=== PATIENT | female | born 1955 | race Caucasian/White ===

== ENCOUNTER → 2019-03-26 | Outpatient (CLI) | payer MEDICAID ==
[2019-03-27 10:09] LABS: ABSOLUTE BASOPHILS # (AUTO) 0.1 10^3/uL (0.0-0.2); ABSOLUTE EOSINOPHILS # (AUTO) 0.3 10^3/uL (0.0-0.6); ABSOLUTE LYMPHOCYTES (AUTO) 2.2 10^3/uL (0.5-4.7); ABSOLUTE MONOCYTES (AUTO) 0.7 10^3/uL (0.1-1.4); ABSOLUTE NEUT (AUTO) 4.9 10^3/uL (1.7-8.2); BASOPHILS % (AUTO) 0.7 % (0-2); EOSINOPHILS % (AUTO) 3.7 % (0-6); HEMATOCRIT 43.5 % (36.0-47.0); HEMOGLOBIN 14.8 g/dL (12.0-15.5); LYMPHOCYTES % (AUTO) 27.3 % (13-45); MEAN CORPUSCULAR HEMOGLOBIN 32.3 pg (27.0-33.4); MEAN CORPUSCULAR VOLUME 95 fl (80-97); MONOCYTES % (AUTO) 8.3 % (3-13); PLATELET COUNT 242 10^3/uL (150-450); RED BLOOD COUNT 4.59 10^6/uL (3.72-5.28); RED CELL DISTRIBUTION WIDTH 14.3 % (11.5-14.0); TOTAL CELLS COUNTED % (AUTO) 100 %; WHITE BLOOD COUNT 8.2 10^3/uL (4.0-10.5)
[2019-03-27 10:25] LABS: ALBUMIN 4.2 g/dL (3.5-5.0); ALKALINE PHOSPHATASE 50 U/L (38-126); ASPARTATE AMINO TRANSFERASE 16 U/L (14-36); BILIRUBIN,DIRECT 0.2 mg/dL (0.0-0.4); BILIRUBIN,TOTAL 0.3 mg/dL (0.2-1.3); CHOLESTEROL 147.32 mg/dL (0-200); TOTAL PROTEIN 7.1 g/dL (6.3-8.2); TRIGLYCERIDES 97 mg/dL (<150)
[2019-03-27 10:31] LABS: ALBUMIN 4.2 g/dL (3.5-5.0); ALKALINE PHOSPHATASE 50 U/L (38-126); ANION GAP 7 (5-19); ASPARTATE AMINO TRANSFERASE 16 U/L (14-36); BILIRUBIN,DIRECT 0.2 mg/dL (0.0-0.4); BILIRUBIN,TOTAL 0.3 mg/dL (0.2-1.3); BLOOD UREA NITROGEN 13 mg/dL (7-20); CALCIUM 10.3 mg/dL (8.4-10.2); CARBON DIOXIDE 29 mmol/L (22-30); CHLORIDE 105 mmol/L (98-107); GLUCOSE 105 mg/dL (75-110); POTASSIUM 4.7 mmol/L (3.6-5.0); TOTAL PROTEIN 7.1 g/dL (6.3-8.2)
[2019-03-27 10:36] LABS: C-REACTIVE PROTEIN < 5.0 mg/L (<10.0)
[2019-03-27 10:39] LABS: DIRECT LDL 67 mg/dL (<100)
[2019-03-27 10:47] LABS: ERYTHROCYTE SEDIMENTATION RATE 18 mm/hr (0-30)
== END ==
LOC: OD 15:17
PROVIDERS: ATTEND Podiatrist Foot Surgery
DX: E11.621 Type 2 diabetes mellitus with foot ulcer (principal); E78.2 Mixed hyperlipidemia; Z79.899 Other long term (current) drug therapy
CPT/HCPCS: 36415; 80053; 80061; 80076; 83036; 85025; 85652; 86140

== ENCOUNTER → 2019-03-26 | Outpatient (CLI) | payer MEDICAID ==
--- NOTE | 2019-03-26 16:28 | RADIOLOGY REPORT (SQ) ---
EXAM DESCRIPTION: FOOT LEFT COMPLETE COMPLETED DATE/TIME: 03/26/2019 2:05 pm REASON FOR STUDY: M86.172 OTHER ACUTE OSTEOMYELITIS, LEFT ANKLE AND FOOT E11.59 TYPE 2 DIABETES BILL LITUS WITH OTH CIRCULATORY COMPLIC M86.172 OTHER ACUTE OSTEOMYELITIS, LEFT ANKLE AND FOOT COMPARISON: None. NUMBER OF VIEWS: Three views. TECHNIQUE: AP, lateral and oblique radiographic images acquired of the left foot. LIMITATIONS: None. FINDINGS: MINERALIZATION: Osteopenia. BONES: No acute fracture or dislocation. No worrisome bone lesions. JOINTS: No effusions. SOFT TISSUES: Dorsal soft tissue swelling. OTHER: No other significant finding. IMPRESSION: Osteopenia. Soft tissue swelling. No evidence of osteomyelitis. TECHNICAL DOCUMENTATION: JOB ID: [id number] [employer]- All Rights Reserved Reading location - IP/workstation name: [email or web address]
--- NOTE | 2019-03-26 16:50 | XCELERA REPORT ---
[address] [address] Lower Extremity Arterial Evaluation Name: YUMIKO CLIFTON Age: 64 yrs Gender: Female : 1955 Patient Status: Outpatient Patient Location: Study Date: 03/26/2019 02:05 PM Procedure: A color flow and duplex scan of the lower extremity arteries was performed bilaterally with velocity and waveform anaylsis. Ankle brachial indicies performed. PPG's performed. Reason For Study: TYPE II DM FOOT ULCER Ordering Physician: HARIS GRIJALVA Performed By: Memo Chambers Measurements and Calculations Right Left TEMPORARY RECEPTIONIST PSV 78.6 164.2 cm/sec Prox PFA PSV 27.3 -242.7cm/sec Prox SFA PSV 132.8 193.0 cm/sec Mid SFA PSV -77.6 -114.4cm/sec Dist SFA PSV -57.2 -118.7cm/sec Prox Pop A PSV 66.3 86.9 cm/sec Dist KIERSTEN PSV 44.5 49.1 cm/sec Mid CORN SHREDDER PSV 22.8 cm/sec Dist CORN SHREDDER PSV 45.3 -26.7 cm/sec Rick Pedis PSV 34.8 64.9 cm/sec Right Side Arterial Evaluation Normal velocity and biphasic waveforms, spectral broadening noted in the Common Femoral artery . Monophasic with low normal velocity, spectral broadening in the Deep Femoral and down to the infrageniculate arteries. Ankle Brachial index 0.6. PPG's are moderately diminished in the first and 5th toes., otherwise, mildly attenuated. Left Side Arterial Evaluation Normal velocity and Triphasic waveforms,moderate spectral broadening, noted in the Common Femoral artery . High velocity and Triphasic waveforms, spectral broadening noted in the Deep Femoral artery . Monophasic with low normal velocity, spectral broadening from the Popliteal down to the infrageniculate arteries. Ankle Brachial index 0.72. PPG's are severely diminished in the second digit,mild attenuation in the 1st digit, otherwise, close to normal. Interpretation Summary Severe hemodynamically significant lesions in the bilateral lower extremities, on duplex imaging, at rest. Duplex findings are complex. On the right, inflow disease as well as sequential changes are inferred, no focal stenosis identified. On the left, Deep femoral high grade stenosis noted. As well as sequential changes in the Femoral artery. APRYL's indicate moderately significant obstruction. PPG's suggest individual variation in blood flow, as noted. : HARIS GRIJALVA > Bran Banuelos
== END ==
LOC: SP 13:45
PROVIDERS: ATTEND Podiatrist Foot Surgery
DX: E11.621 Type 2 diabetes mellitus with foot ulcer (principal); E11.59 Type 2 diabetes mellitus with other circulatory complications; M86.172 Other acute osteomyelitis, left ankle and foot
CPT/HCPCS: 93922; 93925

== ENCOUNTER → 2019-07-13 | Outpatient (CLI) | payer MEDICAID ==
[2019-07-13 16:35] LABS: ALBUMIN 4.6 g/dL (3.5-5.0); ALKALINE PHOSPHATASE 52 U/L (38-126); ANION GAP 9 (5-19); ASPARTATE AMINO TRANSFERASE 17 U/L (14-36); BILIRUBIN,TOTAL 0.5 mg/dL (0.2-1.3); BLOOD UREA NITROGEN 11 mg/dL (7-20); CALCIUM 10.1 mg/dL (8.4-10.2); CARBON DIOXIDE 27 mmol/L (22-30); CHLORIDE 103 mmol/L (98-107); CHOLESTEROL 114.89 mg/dL (0-200); GLUCOSE 82 mg/dL (75-110); POTASSIUM 4.7 mmol/L (3.6-5.0); TOTAL PROTEIN 7.2 g/dL (6.3-8.2); TRIGLYCERIDES 62 mg/dL (<150)
[2019-07-13 16:46] LABS: DIRECT LDL 48 mg/dL (<100)
== END ==
LOC: OD 15:24
PROVIDERS: ATTEND Physician Assistant
DX: E78.2 Mixed hyperlipidemia (principal); I10 Essential (primary) hypertension; Z79.899 Other long term (current) drug therapy
CPT/HCPCS: 36415; 80048; 80061; 80076